=== PATIENT | female | born 1955 | race Hispanic/Latino ===

== ENCOUNTER 2016-07-29 09:16 | Outpatient (CLI) | payer OTHER ==
--- NOTE | 2016-07-29 15:15 | Ultrasound Report ---
TRANSABDOMINAL AND TRANSVAGINAL PELVIC ULTRASOUND: 07/29/16 09:16:00 CLINICAL: Pelvic and perineal pain. FINDINGS: Transabdominal and transvaginal pelvic ultrasound demonstrated a mildly enlarged fibroid uterus measuring 7.8 x 4.7 x 5.7 cm. A single large left intramural fundal fibroid measures 4.6 x 4.2 x 3.8 cm. It may extend to the endometrium.The endometrium thickened and is heterogeneous with a multicystic component. It measures 12.0 mm AP thickness. Normal right ovary. The right ovary measures 1.4 x 0.7 x 1.7cm. normal left ovary. The left ovary measures 1.8 x 1.1 x 0.8cm. No adnexal mass. No free fluid. Normal urinary bladder. IMPRESSION: 1. A fibroid uterus with a dominant 4.6 cm left intramural fundal fibroid which may extend to the endometrium in a submucosal location on its medial margin. 2. Abnormal endometrium with thickening and an abnormal multicystic component. 3. Normal ovaries.
--- NOTE | 2016-07-30 08:36 | XRay Report ---
LEFT HAND RADIOGRAPHS INDICATION: Left hand pain. COMPARISON: None similar. FINDINGS: AP, lateral and oblique left hand radiographs demonstrate intact gross bony articulation. 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 Mild diffuse soft tissue swelling at the wrist also not excluded. Possible osteopenia. CONCLUSION: No acute radiographic abnormality, though left wrist degenerative changes at the scaphotrapezial joint noted, as described. Please correlate. Thank you for the opportunity to participate in this patient's care.
--- NOTE | 2016-07-30 14:06 | Mammography Report ---
BILATERAL DIGITAL SCREENING MAMMOGRAM with CAD: 07/29/16 09:16:00 CLINICAL: Routine screening. COMPARISON:06/17/15 FINDINGS: The breasts are predominant fatty with bilateral residual retroareolar fibroglandular densities. No mass, architectural distortion or suspicious calcifications. IMPRESSION: No mammographic evidence of malignancy. BI-RADS CATEGORY: 2 -- Benign RECOMMENDATION: Routine mammographic screening in one year. COMMENT: Patient follow-up letters are generated by our [employer] application.
== END 2016-07-29 09:17 | disposition home or self-care (01) ==
LOC: SPVWC 09:16
PROVIDERS: ATTEND Internal Medicine
DX: Z12.31 Encounter for screening mammogram for malignant neoplasm of breast (principal); D25.9 Leiomyoma of uterus, unspecified; N85.2 Hypertrophy of uterus
CPT/HCPCS: 73120; 76830; 76856; G0202; 77067

== ENCOUNTER 2016-10-04 06:03 | Observation (INO) | payer OTHER ==
--- NOTE | 2016-10-01 11:14 | Anesthesia Consultation ---
Anesthesia Consult and Med Hx Date of service: 10/04/16 - Airway Anesthetic Teeth Evaluation: Dentures (upper and lower) ROM Head & Neck: Adequate Mental/Hyoid Distance: Inadequate Mallampati Class: Class II Intubation Access Assessment: Possibly Difficult - Pulmonary Exam CTA: Yes - Cardiac Exam Cardiac Exam: RRR - Pre-Operative Health Status ASA Pre-Surgery Classification: ASA3 Proposed Anesthetic Plan: General - Pulmonary Hx Asthma: Yes (severe, uses rescue inhaler daily) Hx Respiratory Symptoms: Yes (prior intubation due to severe asthma attack) SOB: Yes (related to asthma) Home Oxygen Therapy: No Hx Pneumonia: No Hx Sleep Apnea: No - Cardiovascular System Hx Hypertension: No Hx Coronary Artery Disease: Yes (Robotic CABG X1 05/2015) Hx Heart Attack/AMI: No Hx Angina: No Hx Percutaneous Transluminal Coronary Angioplasty (PTCA): Yes Hx Valvular Heart Disease: Yes (aortic valve thickening, mild MR and TR) - Central Nervous System Hx Neuromuscular Disorder: No CVA: No Hx Psychiatric Problems: No - Gastrointestinal Hx Gastroesophageal Reflux Disease: No - Endocrine Hx Renal Disease: No Hx Insulin Dependent Diabetes: No - Other Systems Hx Alcohol Use: No Hx Substance Use: No Hx Cancer: No Hx Obesity: No
[2016-10-01 11:23] LABS: Bacteria,Urine 1+ /HPF (Negative); Bilirubin,Urine NEG (Negative); Blood,Urine NEG (Negative); Ketones,Urine NEG (Negative); Leukocyte Esterase,Urine MOD (Negative); Nitrite,Urine NEG (Negative); Protein,Urine <15 mg/dL mg/dL (Negative); Urobilinogen,Urine < 2.0 mg/dL (<2.0)
[2016-10-01 11:27] LABS: Eosinophils % (Auto) 2.3 % (0.0-4.3); Hematocrit 40.6 % (30.3-42.9); Hemoglobin 13.7 gm/dl (10.1-14.3); Mean Corpuscular HGB Conc 34 % (30-34); Mean Corpuscular Hemoglobin 30 pg (28-32); Mean Corpuscular Volume 88 fl (79-97); Platelet Count 299 K/mm3 (140-440); Red Cell Distribution Width 13.1 % (13.2-15.2); White Blood Count 4.8 K/mm3 (4.5-11.0)
[2016-10-01 11:39] LABS: Albumin 4.6 g/dL (3.9-5); Albumin/Globulin Ratio 1.5 %; Bilirubin,Total 0.4 mg/dL (0.1-1.2); Calcium 9.2 mg/dL (8.4-10.2); Chloride 102.6 mmol/L (98-107); Potassium 3.9 mmol/L (3.6-5.0); Total Protein 7.7 g/dL (6.3-8.2)
[~2016-10-04 06:03] MED LIST: NACL 0.9% 1000 ML 1,000 ML IV SCH; PEPCID IV NR; PROVENTIL IH NR; VERSED IV NR
[2016-10-04] MEDS ORDERED: SUBLIMAZE IV ONE (06:38)
[2016-10-04] MEDS ORDERED: NEURONTIN PO NR (07:00)
--- NOTE | 2016-10-04 07:02 | Anesthesia Day of Surgery ---
Anesthesia Day of Surgery - Day of Surgery Patient Examined: Yes Patient H&P Reviewed: Yes Patient is NPO: Yes Beta Blockers: No Cardiac Clearance: Yes
[2016-10-04] MEDS ORDERED: MARCAINE-EPI 0.25%-1:200,000 INFILTRATI ONE (07:03)
[2016-10-04] MEDS ORDERED: MARCAINE-EPI 0.5%-1:200,000 INFILTRATI ONE (07:04)
[2016-10-04] MEDS ORDERED: XYLOCAINE 1% 20 mL ONE (07:14)
[2016-10-04] MEDS ORDERED: DIPRIVAN 10 MG/ML IV ONE (07:18)
[2016-10-04] MEDS ORDERED: DILAUDID ONE (07:19)
[2016-10-04] MEDS ORDERED: NEOSPORIN GU IR ONE ×2 (07:28→10:39)
[2016-10-04] MEDS ORDERED: ANCEF/STERILE WATER 2 GM/20 ML IV NR (08:00)
[2016-10-04] MEDS ORDERED: FLAGYL 500 MG/100 ML 500 MG/100 ML BAG IV SCH (08:00)
[2016-10-04] MEDS ORDERED: CALCIUM CHLORIDE IV ONE ×2 (08:11→10:39)
[2016-10-04] MEDS ORDERED: THROMBIN (BOVINE) TP ONE ×2 (08:11→10:40)
[2016-10-04] MEDS ORDERED: ePHEDrine SULFATE ONE (08:28)
[2016-10-04] MEDS ORDERED: XYLOCAINE MPF 2% ONE (09:13)
[2016-10-04] MEDS ORDERED: ZEMURON IV ONE (09:13)
[2016-10-04] MEDS ORDERED: METHYLENE BLUE ONE ×2 (09:25→09:29)
--- NOTE | 2016-10-04 09:25 | Admit Criteria Form ---
Admission Criteria Documentation: AMBULATORY SURGERY EXCEPTION CRITERIA Ambulatory Surgery Exception Criteria ( Place 'X' for any and all applicable criteria): Surgery or procedure performed on ambulatory basis may require inpatient stay for[A] ANY ONE of the following(1)(2)(3)(4)(5)(6)(7)(8)(9): [X] I. A preoperative situation, condition, or finding that warrants inpatient stay as indicated by ANY ONE of the following: [] a) Inpatient care needed because of severity of a disease or condition rather than the surgery (eg, severe cardiac or respiratory disease, severe infection) (15) (16 ) (17) (18) [] b) Emergent procedure (eg, angioplasty for acute ischemia)(19) [] c) Complex surgical approach or situation as indicated by ANY ONE of the following(3): [] i) Open approach needed instead of usual endoscopic, transcatheter, or other less invasive procedure [] ii) Difficult approach because of previous operation [] iii) Airway monitoring required after open neck procedures(20)(21) [] iv) Large mass requiring unusually extensive dissection [] v) Additional complicating feature requiring inpatient care (eg, drain management)(22(23): [X] d) Major surgery in a pt with high anesthetic risk as indicated by ANY ONE of the following (2)(3)(5)(7)(8): [X] i) ASA risk class III or higher (severe systemic disease impairing function) [D] [] ii) Advanced age (eg, older than 85 years)(14)(24) [] iii) Symptomatic heart failure(25) [] iv) Symptomatic asthma or COPD(8)(21) [] v) Morbid obesity with hemodynamic or respiratory problems(20)( 21)(26)(27) [] vi) Obstructive sleep apnea(20)(21) [] vii) Former premature infants who are younger than 60 weeks [] viii) High risk for severe postoperative abnormalities (eg, severe postoperative hypocalcemia after parathyroidectomy for severe hyperparathyroidism)(27)( 28) [] ix) Unstable angina(25) [] e) Drug-related risk requiring inpatient stay as indicated by ANY ONE of the following(5)(10)(14)(32)(33) [] i) Procedure requires discontinuing drugs or other therapy (eg , antiarrhythmic medication, antiseizure medication), which necessitates inpatient observation or treatment.(18)(31) [] ii) Major surgery and high risk drug use as indicated by ANY ONE of the following: [] 1) Active abuse of cocaine or similar drug [] 2) Monoamine oxidase inhibitor use [] 3) Other drug identified as posing risk [] f) Inadequate outpatient care situation as indicated by ANY ONE of the following(5)(10)(14)(32)(33) [] i) Patient lives remote from medical facility and procedure has urgent complication potential, and temporary nearby residence cannot be arranged [] ii) Patient will have postprocedure incapacitation and inadequate assistance at home, or alternative level of care cannot be arranged. [] iii) Patient will have long general anesthesia or procedure side effect resolution time, and competent person to stay with patient on first postoperative night at home or alternative level of care cannot be arranged. []iv) Other inadequate outpatient situation that cannot be handled by other means [] II. A perioperative event, condition, or finding that warrants inpatient stay as indicated by ANY ONE of the following (1)(2)(3): [] a) Inadequate physiologic recovery: cardiovascular, respiratory, or hemodynamic status not normal or near preoperative baseline(18) [] b) Hemodynamic instability [] c) Patient not alert with near normal or baseline mental status [] d) Temperature not normal or as expected and not appropriate for outpatient treatment of condition [] e) Ambulatory or appropriate activity level status not yet achieved post procedure [E](34)(35)(36) [] f) Operative site not appropriate (eg, unexpected or excessive drainage or bleeding) [] g) Postoperative effects not resolved or adequately managed (eg, significant pain or vomiting not appropriate for outpatient or next level of care)(10)(12) [] h) Complicating features requiring inpatient care as indicated by ANY ONE of the following(37): [] i) Severe complications of procedure (eg, bowel injury, airway compromise, vascular injury,severe hemorrhage) [] ii) Extensive (eg, dissection far beyond usual scope of procedure ) or prolonged (eg, 120 minutes beyond usual) surgery needed requiring inpatient postoperative care [] iii) Conversion to an open or complex procedure that requires inpatient care (eg, open vs laparoscopic cholecystectomy, abdominal vs vaginal hysterectomy)(38) [] iv) Comorbid condition or test result identified during or post procedure that requires inpatient care (7) [] v) Malignant hyperthermia(30) [] vi) Other complicating feature requiring inpatient care(22)(23) Inpatient stay may be needed until ALL of the following are present (1)(2)(3)(4) (5)(6)(10)(14)(33)(40): []a) Physiologic recovery: cardiovascular, respiratory, and hemodynamic status normal or near preoperative baseline []b) Hemodynamic stability []c) Patient alert, with near normal or baseline mental status []d) Temperature appropriate: patient afebrile or temperature appropriate for outpt treatment of condition []e) Activity level appropriate: ambulatory or appropriate activity level post procedure []f) Operative site appropriate as indicated by ALL of the following: []i) Site dry or with expected drainage []ii) Any blood noted is as expected for procedure. []g) Postoperative effects resolved or managed as indicated by ALL of the following: []i) Pain management appropriate for outpatient (or next level of) care(10) []ii) Minimal nausea and vomiting: if present, successfully treated with oral medication(12) []iii) Headache, dizziness, or drowsiness (if present) are mild. []h) Voiding status acceptable as indicated by ANY ONE of the following: []i) Voiding spontaneously []ii) No voiding but instructions given for follow-up in 6 to 8 hours []iii) Urinary catheter in place, and instructions given for follow-up []i) Complicating features requiring inpatient care manageable at a lower level of care(37) []j) Comorbid conditions manageable at a lower level of care(37) The original [employer] content created by [employer] has been revised. The portions of the content which have been revised are identified through the use of italic text or in bold, and [facility] [employer] has neither reviewed nor approved the modified material. All other unmodified content is copyright [employer]. Please see references footnoted in the original [employer] edition 2016 Admission Criteria Met: Yes
[2016-10-04] MEDS ORDERED: METHYLENE BLUE IV ONE (09:34)
[2016-10-04] MEDS ORDERED: NACL 0.9% 1000 ML 1,000 ML ONE (09:35)
[2016-10-04] MEDS ORDERED: LASIX ONE (10:16)
--- NOTE | 2016-10-04 10:33 | Short Stay Summary ---
Short Stay Documentation Date of service: 10/04/16 - History H&P: obtained from office - Allergies and Medications Current Medications: Allergies No Known Allergies Allergy (Verified 09/30/16 09:35) Home Medications Medication Instructions Recorded Confirmed Last Taken Type ALBUTEROL Inhaler [Proair] 2 puff IH QID PRN 09/30/16 10/04/16 10/04/16 History Fluticasone/Vilanterol [Breo 1 puff IH DAILY 09/30/16 10/04/16 10/04/16 History Ellipta 100-25 Mcg INH] Pravastatin Sodium [Pravastatin] 10 mg PO QHS 09/30/16 10/04/16 10/03/16 History Aspirin [Aspirin BABY CHEW TAB] 81 mg PO 10/04/16 09/27/16 History Active Medications Famotidine (Pepcid) 20 mg IV PREOP NR Stop: 10/04/16 23:01 Last Admin: 10/04/16 07:10 Dose: 20 mg Sodium Chloride (Nacl 0.9% 1000 Ml) 1,000 mls @ 75 mls/hr IV DIRECT KRISS Last Admin: 10/04/16 07:05 Dose: 75 mls/hr Midazolam HCl (Versed) 2 mg IV PREOP NR Stop: 10/04/16 23:59 Last Admin: 10/04/16 07:17 Dose: 2 mg - Brief post op/procedure progress note Date of procedure: 10/04/16 Pre-op diagnosis: postmenopausal, thickened endometrium on u/s, pelvic pain, Post-op diagnosis: same Procedure: EUA, hsyteroscopy, D&C, laparoscopic, robot-assisted hysterectomy, BSO, MICKEY, cystoscopy Anesthesia: GETA Findings: 8 cm uterus, +benign appearing endometrial mass c/w a polyp or fibroid, normal appearing endometrium, fibroid uterus, normal appearing bilateral tubes and bilateral ovaries, +large bowel adhesions to the left pelvic side wall. Normal appearing bladder with demonstration of bilateral ureteral patency, no lesions, masses, or gross hematuria. Surgeon: TIAGO RANGEL Estimated blood loss: minimal Pathology: list (endometrial curretings (benign on frozen), uterus/cervix ( weighing 100 g), bilateral tubes, bilateral ovaries) Specimen disposition: to lab Condition: stable - Disposition Condition at discharge: Good Disposition: DISCHARGED TO HOME OR SELFCARE Short Stay Discharge Plan Follow up with: MALLORY LUCERO MD [Primary Care Provider] - 7 Days
[2016-10-04] MEDS ORDERED: NACL 0.9% IR ONE (10:39)
[2016-10-04] MEDS ORDERED: PERCOCET 5/325 PO PRN (10:41)
[2016-10-04] MEDS ORDERED: ZOFRAN PO PRN (10:41)
[2016-10-04] MEDS ORDERED: DULCOLAX PR PRN (10:41)
[2016-10-04] MEDS ORDERED: REGLAN PO PRN (10:41)
[2016-10-04] MEDS ORDERED: MORPHINE IV PRN (10:41)
[2016-10-04] MEDS ORDERED: TYLENOL PO PRN (10:41)
[2016-10-04] MEDS ORDERED: NARCAN 0.4 MG/1 ML IV PRN (10:41)
[2016-10-04] MEDS ORDERED: REGLAN IV PRN (10:41)
[2016-10-04] MEDS ORDERED: SODIUM CHLORIDE FLUSH SYRINGE 10 ML IV PRN (10:41)
[2016-10-04] MEDS ORDERED: MILK OF MAGNESIA PO PRN (10:41)
[2016-10-04] MEDS ORDERED: ZOFRAN IV PRN (10:41)
[2016-10-04] MEDS ORDERED: PROAIR IH PRN (10:52)
[2016-10-04] MEDS ORDERED: MORPHINE ONE ×2 (11:30→13:03)
[2016-10-04] MEDS: MORPHINE IV PRN ×3 (11:45→22:23)
--- NOTE | 2016-10-04 11:49 | Post Anesthesia Evaluation ---
- Post Anesthesia Evaluation Patient Participated: Yes Airway Patent: Yes Stable Respiratory Function: Yes Temp > 96.8F: Yes Pain Manageable: Yes Adequeate Hydration: Yes Anesthesia Complications: No Block Receding Appropriately: Not Applicable
[2016-10-04] MEDS ORDERED: D5W/0.45% NACL/KCL 20 MEQ 20 MEQ/1,000 ML BAG IV ONE (12:09)
[2016-10-04] MEDS ORDERED: PROVENTIL IH PRN (12:11)
[2016-10-04] MEDS: D5W/0.45% NACL/KCL 20 MEQ 20 MEQ/1,000 ML BAG IV SCH (13:05)
[2016-10-04] MEDS: ANCEF/NS 1 GM/50 ML 1 GM/50 ML BAG IV SCH ×2 (16:26→23:16)
[2016-10-04] MEDS: FLAGYL 500 MG/100 ML 500 MG/100 ML BAG IV SCH (16:28)
[2016-10-04] MEDS: COLACE PO SCH (21:15)
[2016-10-04] MEDS: TORADOL IV SCH (23:12)
[2016-10-05] MEDS: FLAGYL 500 MG/100 ML 500 MG/100 ML BAG IV SCH (00:35)
[2016-10-05 04:44] LABS: Hematocrit 32.4 % (30.3-42.9)
[2016-10-05 04:48] LABS: Anion Gap 16 mmol/L; BUN/Creatinine Ratio 5.55; Blood Urea Nitrogen 5 mg/dL (7-17); Calcium 7.9 mg/dL (8.4-10.2); Carbon Dioxide 23 mmol/L (22-30); Chloride 103.2 mmol/L (98-107); Glucose 114 mg/dL (65-100); Potassium 3.6 mmol/L (3.6-5.0); Sodium 139 mmol/L (137-145)
[2016-10-05] MEDS: TORADOL IV SCH ×2 (05:15→11:27)
[2016-10-05] MEDS: D5W/0.45% NACL/KCL 20 MEQ 20 MEQ/1,000 ML BAG IV SCH (05:19)
[2016-10-05] MEDS ORDERED: PULMICORT IH SCH (08:00)
[2016-10-05] MEDS ORDERED: BROVANA NEBU IH SCH (08:00)
[2016-10-05 08:42] VITALS: BP 104/57
--- NOTE | 2016-10-05 09:39 | Operative Report ---
PREOPERATIVE DIAGNOSIS: Postmenopausal female, thickened endometrium on ultrasound, pelvic pain. POSTOPERATIVE DIAGNOSIS: Postmenopausal female, thickened endometrium on ultrasound, pelvic pain. PROCEDURE: EUA, hysteroscopy, D and C, laparoscopic robot-assisted hysterectomy, BSO, lysis of adhesions, diagnostic cystoscopy. ANESTHESIA: General. FINDINGS: The patient had an 8 cm uterus. She had a benign appearing endometrial mass, which appeared consistent with a fibroid or a polyp. Her endometrium appeared normal and not thickened. She had a fibroid uterus. She had bilaterally normal-appearing ovaries and tubes. Her appendix was not visualized. The patient had a normal appearing bladder with evidence of bilateral ureteral patency. There was no gross hematuria noted. There were no significant bladder trabeculations, lesions or masses. SURGEON: Haily Harris MD SCIENCE INTERN: Cece Henderson. ESTIMATED BLOOD LOSS: Less than 25 mL. PATHOLOGY: Endometrial curettings (benign on frozen section), uterus and cervix weighing 100 grams, bilateral tubes, bilateral ovaries sent to lab. CONDITION: Stable. INDICATIONS: The patient is a 61-year-old female with chronic pelvic pain and a thickened endometrium noted on a recent ultrasound. She reports a 7-month history of daily pelvic pain, bilaterally, occurring 2-3 times daily, up to 6/10 on a pain scale, not associated with GI changes, urinary, or musculoskeletal symptoms. Her colonoscopy in 2009 was negative. She had a pelvic ultrasound on 07/29/2016 showing a 7.8 x 4.7 x 5.7 cm uterus with a 4.6 x 4.2 x 3.8 fundal fibroid and 12 mm endometrial stripe, which had an abnormal multicystic component. Bilateral ovaries appeared normal. She was brought to the operating room today for a hysteroscopy, D and C, EUA, laparoscopic robot-assisted hysterectomy, BSO, cystoscopy. DESCRIPTION OF PROCEDURE: The patient brought to the operating room where general anesthesia was administered without difficulty. She was prepared and draped in the usual sterile fashion, positioned in the dorsal lithotomy position. A Mcnulty catheter was placed in the bladder. Her uterus was sounded to 8 cm as noted above. Hysteroscopy was performed with the findings as noted above. Following that, a sharp curettage of the uterus was performed and the specimen sent to pathology. All instruments were removed from the vagina. A large VCare device was placed in the uterus to provide a means of manipulating the uterus during the surgery. Once the specimen was noted to be benign, we proceeded with placing a 5 mm optical trocar in the left lower quadrant subcostal margin midclavicular line. A 12 mm trocar was placed approximately 2-3 fingerbreadths superior to the umbilicus in the midline. An 8 and 12 mm trocar was placed 8 cm to 10 cm to the right of midline. An 8 mm trocar was placed 8 cm to 10 to the left of the midline. The robot was properly docked. Inside the abdomen and pelvis, the right retroperitoneal space was dissected. The ureter was clearly visualized. The IP ligament on that side was clamped x 3 using Hem-o-jo ann and then transected. A round ligament on the same side was cauterized and transected. The same procedure was carried out on the contralateral side. The bladder was dissected from the lower uterine segment. The bilateral uterine vessels were skeletonized, cauterized, and then transected. The bilateral cardinal ligaments were cauterized and transected. Following the groove of the VCare device, the colpotomy was performed. The uterus and cervix were amputated and were removed from the pelvis via the vagina. Hemostasis was obtained by closing the vaginal cuff in a running fashion using 0 V-Loc suture. A second layer of the same suture was used to imbricate over the vaginal cuff. Hemostasis was visualized. PRP was generously applied over the vaginal cuff and bilateral retroperitoneal spaces followed by PPP. All instruments were then removed from the abdomen and pelvis. All fascial incisions greater than 8 mm closed with 0 Vicryl suture. Skin was closed in subcuticular fashion. Dermabond was applied over the skin incisions. The patient was given 10 mL of methylene blue and a diagnostic cystoscopy was performed. The findings were as noted above. Following this, the cystoscope was withdrawn and a Mcnulty catheter was reinserted. The patient tolerated the procedure well and was taken to the recovery room awake in stable condition. JOB# [id number] NEREIDA/JORGE
[2016-10-05] MEDS: PROTONIX IV SCH ×2 (10:00→11:27)
[2016-10-05] MEDS ORDERED: FLUTICASONE IH SCH (10:00)
[2016-10-05] MEDS: COLACE PO SCH ×2 (10:00→11:27)
[2016-10-05] MEDS ORDERED: VILANTEROL IH SCH (10:00)
--- NOTE | 2016-10-05 10:41 | Progress Note ---
Subjective Date of service: 10/05/16 Interval history: Pt resting in bed. Not ambulating sequential compression hose on. Pain at 2 meds prn for pain control. TAP block patchy per pt. "Top OK, Bottom pain" No N/ V. Sore throat resolved. No anesthetic complications noted. Objective - Constitutional Vitals: Vital Signs - 12hr 10/04/16 10/05/16 10/05/16 23:57 00:05 08:00 Temperature 97.9 F 98.2 F Pulse Rate [ Anterior Bilateral Upper Lobe] Pulse Rate [ 65 54 L Right Brachial] Respiratory 20 20 18 Rate Respiratory Rate [Anterior Bilateral Upper Lobe] Blood Pressure 136/89 104/57 [Right Arm] O2 Sat by Pulse 99 98 99 Oximetry 10/05/16 10/05/16 10/05/16 08:29 08:39 08:40 Temperature Pulse Rate [ 64 Anterior Bilateral Upper Lobe] Pulse Rate [ Right Brachial] Respiratory Rate Respiratory 18 Rate [Anterior Bilateral Upper Lobe] Blood Pressure [Right Arm] O2 Sat by Pulse 99 100 Oximetry - Labs CBC & Chem 7: 10/05/16 04:16 10/05/16 04:16 Labs: Abnormal lab results 10/05/16 Range/Units 04:16 BUN 5 L (7-17) mg/dL Glucose 114 H (65-100) mg/dL Calcium 7.9 L (8.4-10.2) mg/dL Magnesium 1.60 L (1.7-2.3) mg/dL
== END 2016-10-05 11:05 | disposition home or self-care (01) ==
LOC: OR 06:03 → OB 10:41 → 2B-SURG 15:26
PROVIDERS: ADMIT Obstetrics & Gynecology Gynecology; ATTEND Obstetrics & Gynecology Gynecology
DX: R10.2 Pelvic and perineal pain (principal); R93.8 Abnormal findings on diagnostic imaging of other specified body structures; G89.29 Other chronic pain; J45.909 Unspecified asthma, uncomplicated; I25.10 Atherosclerotic heart disease of native coronary artery without angina pectoris; E78.5 Hyperlipidemia, unspecified; Z95.1 Presence of aortocoronary bypass graft
CPT/HCPCS: 36415; 52000; 58558; 58571; 64450; 80048; 80053; 81001; 83735; 85014; 85018; 85025; 86850; 86900; 86901; 87086; 88305; 88307; 88331; 94640; 94760; 96365; 96366; 96367; 96375; 96376; C1765; G0378; J0690; J1170; J1885; J1940; J2250; J2270; J2704; J3010; J7030; Q9968; S2900

== ENCOUNTER 2017-07-29 11:15 | Outpatient (CLI) | payer OTHER ==
--- NOTE | 2017-07-29 16:21 | Mammography Report ---
BILATERAL DIGITAL SCREENING MAMMOGRAM with CAD: 07/29/17 11:15:00 CLINICAL: Routine screening. COMPARISON:07/29/16 and 06/17/15 FINDINGS: The breasts are mostly fatty with bilateral residual retroareolar heterogeneously dense fibroglandular densities. A left asymmetry on the MLO view requires additional imaging.No architectural distortion or suspicious calcifications.The right breast is negative. IMPRESSION: Left asymmetry requiring further workup. BI-RADS CATEGORY: 0 -- Additional Imaging Evaluation Required RECOMMENDATION: Recall for left MLO and CC spot magnification views and left breast ultrasound is needed. ACR BI-RADS MAMMOGRAPHIC CODES: 0 = Needs additional imaging evaluation; 1 = Negative; 2 = Benign; 3 = Probably benign; 4 = Suspicious; 5 = Malignant; 6 = Known biopsy-proven malignancy COMMENT: 1. Dense breast tissue, i.e., adenosis, fibrocystic changes, etc., may obscure an underlying neoplasm. 2. Approximately 10% of cancers are not detected with mammography. 3. A negative mammography report should not delay biopsy if a clinically suspicious mass is present. COMMENT: Patient follow-up letters are generated via our [employer] application.
== END 2017-07-29 11:16 | disposition home or self-care (01) ==
LOC: SPVWC 11:15
PROVIDERS: ATTEND Internal Medicine
DX: Z12.31 Encounter for screening mammogram for malignant neoplasm of breast (principal)
CPT/HCPCS: 77067

== ENCOUNTER 2017-08-18 11:19 | Outpatient (CLI) | payer OTHER ==
--- NOTE | 2017-08-18 11:51 | Mammography Report ---
Left mammogram: Based on recent screening recommendation additional compression imaging of the left breast is performed in the CC and lateral projections. An area of asymmetry identified in the upper outer left breast anteriorly does not demonstrate any suspicious architectural change and when compared to prior exams is not substantially different than exams dating back to 2016. Impression: Nonsuspicious asymmetry. Recommendation: Annual mammogram followup. BI-RADS CATEGORY: 2 = Benign ACR BI-RADS MAMMOGRAPHIC CODES: 0 = Needs additional imaging evaluation; 1 = Negative; 2 = Benign; 3 = Probably benign; 4 = Suspicious; 5 = Malignant; 6 = Known biopsy-proven malignancy COMMENT: 1. Dense breast tissue, i.e., adenosis, fibrocystic changes, etc., may obscure an underlying neoplasm. 2. Approximately 10% of cancers are not detected with mammography. 3. A negative mammography report should not delay biopsy if a clinically suspicious mass is present.
== END 2017-08-18 11:20 | disposition home or self-care (01) ==
LOC: SPVWC 11:19
PROVIDERS: ATTEND Nurse Practitioner Family
DX: N64.89 Other specified disorders of breast (principal); R92.2 Inconclusive mammogram